=== PATIENT | male | born 1975 | race African-American/Black ===

== ENCOUNTER 2017-12-12 18:45 | Emergency (ER) | payer BC ==
[~2017-12-12] VITALS: Ht 170.2 cm; Wt 74.8 kg
--- NOTE | ~2017-12-12 | EKG ---
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
[2017-12-12] MEDS ORDERED: IBUPROFEN 600600 M1 PO (21:09)
[2017-12-12 21:17] VITALS: BP 116/73
== END 2017-12-12 21:30 | disposition home or self-care (01) ==
LOC: ER 18:45
DX: S70.211A Abrasion, right hip, initial encounter (principal); S80.211A Abrasion, right knee, initial encounter; S60.512A Abrasion of left hand, initial encounter; S60.511A Abrasion of right hand, initial encounter; S50.311A Abrasion of right elbow, initial encounter; V28.4XXA Motorcycle driver injured in noncollision transport accident in traffic accident, initial encounter; Y93.89 Activity, other specified; Y92.89 Other specified places as the place of occurrence of the external cause; Y99.8 Other external cause status